=== PATIENT | female | born 1965 | race Caucasian/White ===

== ENCOUNTER 2016-08-12 12:58 | Day surgery (SDC) | payer OTHER ==
[~2016-08-12 12:58] MED LIST: Lidocaine Topical 2% 30 mL Jelly ONE
== END 2016-08-12 23:59 | disposition home or self-care (01) ==
LOC: END 12:58
PROVIDERS: ATTEND Internal Medicine Gastroenterology
DX: J39.8 Other specified diseases of upper respiratory tract (principal)